=== PATIENT | male | born 1965 | race Caucasian/White ===

== ENCOUNTER 2017-03-24 07:03 | Day surgery (SDC) | payer OTHER ==
[~2017-03-24] VITALS: Ht 180.3 cm; Wt 76.1 kg
[~2017-03-24 07:03] MED LIST: DOXY100T20 PO; [UNRECOGNIZED DRUG - CODE] TP
[2017-03-24 08:09] VITALS: Ht 180.3 cm; Wt 76.1 kg
[2017-03-24] MEDS ORDERED: PRILOSEC (08:11)
[2017-03-24 08:33] VITALS: BP 118/68; PULSE 72; RESP 18
--- NOTE | 2017-03-24 09:12 | OPPN ---
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
[2017-03-24] MEDS ORDERED: MIDAZOLAM 1 MG/ML 2 ML INJ ONE ×3 (09:23)
[2017-03-24] MEDS ORDERED: FENTAnyl 50 MCG/ML VIAL ONE (09:23)
[2017-03-24 09:30] VITALS: BP 121/69; RESP 15
--- NOTE | 2017-03-24 12:38 | GILP ---
DATE OF PROCEDURE: PROCEDURE: Colonoscopy with biopsy. INDICATION: A 52-year-old gentleman undergoing this procedure for screening colonoscopy. The risks of the procedure, related and unrelated complications, anesthetic risk, sedative risks, alternative s discussed and informed consent was obtained. DESCRIPTION OF PROCEDURE: The patient was brought to the GI lab, sedated with 6 mg of Versed, 100 m g of fentanyl. After optimal sedation, digital examination done. Prostate appeared slightly enlarg ed. Sphincter tone was normal. No mass was felt. Scope was passed with much ease into the rectum, advanced through sigmoid, descending, transverse colon all the way into cecum and finally into term inal ileum. The clarity was good, cleanliness. There was some collection of stool at different ang ulations. The stool was semi-solid, but grossly the entire colon was normal except for colitis on t he left side of the colon which appears to be melanosis coli. Biopsy was taken to confirm it. The rest of the colon appeared normal. Retroversion done, no growth was seen. Small external hemorrhoi ds identified. The patient tolerated the procedure very well. IMPRESSION: Normal findings all the way into the cecum except for colitis, melanosis coli in the le ft side of the colon. The clarity was good. Cleanliness was adequate to good. PLAN: Review histopathology. The patient should stay on a high fiber diet, Metamucil or Citrucel o n a regular basis. Dictated By: RICHELLE LOPEZ MD PJ/NTS Conf#: [id number] DID#: [id number] CC: CONCHA ESPINOSA MD;*EndCC*
== END 2017-03-24 11:28 | disposition home or self-care (01) ==
LOC: GIL 07:03
PROVIDERS: ATTEND Internal Medicine Gastroenterology
DX: Z12.11 Encounter for screening for malignant neoplasm of colon (principal); K52.9 Noninfective gastroenteritis and colitis, unspecified; K63.89 Other specified diseases of intestine
CPT/HCPCS: 45380; 88305; J2250; J3010; Z7610